=== PATIENT | male | born 1955 | race Caucasian/White ===

== ENCOUNTER 2021-08-25 09:52 | Inpatient (IN) | payer OTHER ==
[~2021-08-25] VITALS: Ht 182.9 cm; Wt 114.6 kg
[2021-08-25 10:34] LABS: BASOPHILS ABSOLUTE AUTO 0.11 K/mm3 (0.00-0.23); BASOPHILS PERCENT AUTO 1 % (0-2); EOSINOPHILS ABSOLUTE AUTO 0.24 K/mm3 (0.00-0.68); EOSINOPHILS PERCENT AUTO 2 % (0-6); Hematocrit 41.7 % (37.0-53.0); Hemoglobin 13.8 g/dL (13.5-17.5); IMMATURE GRAN ABSOLUTE AUTO 0.03 K/mm3 (0.00-0.10); IMMATURE GRAN PERCENT AUTO 0 % (0-1); LYMPHOCYTES ABSOLUTE AUTO 2.65 K/mm3 (0.84-5.20); LYMPHOCYTES PERCENT AUTO 22 % (21-46); MONOCYTES ABSOLUTE AUTO 0.75 K/mm3 (0.16-1.47); MONOCYTES PERCENT AUTO 6 % (4-13); Mean Corpuscular HGB 30.4 pg (26.0-34.0); Mean Corpuscular HGB Conc 33.1 g/dL (31.5-36.5); Mean Corpuscular Volume 92 fL (80-100); Mean Platelet Volume 9.5 fL (9.1-12.4); NEUTROPHILS PERCENT AUTO 69 % (41-73); Platelet Count 238 K/mm3 (150-400); RDW Coefficient Variation 14.7 % (11.7-14.2); RDW Standard Deviation 49.5 fL (35.1-46.3); Red Blood Cell Count 4.54 M/mm3 (4.30-5.90); White Blood Cell Count 12.18 K/mm3 (4.00-11.30)
[2021-08-25 10:56] LABS: Albumin, Blood 4.1 g/dL (3.4-5.0); Albumin/Globulin Ratio 1.1 (0.8-1.8); Bun/Creatinine Ratio 18.6 (12.0-20.0); Creatinine, Blood 1.02 mg/dL (0.60-1.20); Globulin, Blood 3.7 g/dL (2.2-4.0); Potassium, Blood 4.1 mmol/L (3.5-5.5); Total Protein, Blood 7.8 g/dL (6.4-8.2)
[2021-08-25] MEDS ORDERED: THERA-D2000 UNIT PO (12:12)
[2021-08-25] MEDS ORDERED: Carvedilol12.5 MG PO (12:12)
[2021-08-25] MEDS ORDERED: TOCO1000 PO (12:12)
[2021-08-25] MEDS ORDERED: ATORVASTATIN CA40 M1 PO (12:13)
[2021-08-25] MEDS ORDERED: CLOP75 PO (12:13)
[2021-08-25] MEDS ORDERED: AMLO5 PO (12:13)
[2021-08-25] MEDS ORDERED: FOLI1 PO (12:13)
[2021-08-25] MEDS ORDERED: MULTI-VITAMIN1 EAC2 PO (12:14)
[2021-08-25 17:53] LABS: Anti-Xa UFH, PHA Monitoring <0.10 IU/mL; International Normalized Ratio 1.02; Prothrombin Time Results 10.7 Sec (9.7-11.5)
[2021-08-26 01:03] LABS: BASOPHILS ABSOLUTE AUTO 0.08 K/mm3 (0.00-0.23); BASOPHILS PERCENT AUTO 1 % (0-2); EOSINOPHILS ABSOLUTE AUTO 0.17 K/mm3 (0.00-0.68); EOSINOPHILS PERCENT AUTO 1 % (0-6); Hemoglobin 13.5 g/dL (13.5-17.5); IMMATURE GRAN ABSOLUTE AUTO 0.05 K/mm3 (0.00-0.10); IMMATURE GRAN PERCENT AUTO 0 % (0-1); LYMPHOCYTES ABSOLUTE AUTO 3.13 K/mm3 (0.84-5.20); LYMPHOCYTES PERCENT AUTO 21 % (21-46); MONOCYTES ABSOLUTE AUTO 0.88 K/mm3 (0.16-1.47); MONOCYTES PERCENT AUTO 6 % (4-13); Mean Corpuscular HGB 30.3 pg (26.0-34.0); Mean Corpuscular HGB Conc 32.9 g/dL (31.5-36.5); Mean Corpuscular Volume 92 fL (80-100); Mean Platelet Volume 9.8 fL (9.1-12.4); NEUTROPHILS ABSOLUTE AUTO 10.31 K/mm3 (1.96-9.15); NEUTROPHILS PERCENT AUTO 71 % (41-73); Platelet Count 224 K/mm3 (150-400); RDW Coefficient Variation 14.6 % (11.7-14.2); RDW Standard Deviation 50.2 fL (35.1-46.3); Red Blood Cell Count 4.45 M/mm3 (4.30-5.90); White Blood Cell Count 14.62 K/mm3 (4.00-11.30)
[2021-08-26 01:22] LABS: Albumin, Blood 3.9 g/dL (3.4-5.0); Bilirubin, Total 1.4 mg/dL (0.1-1.0); Bun/Creatinine Ratio 16.6 (12.0-20.0); Calcium, Blood 9.5 mg/dL (8.5-10.1); Creatinine, Blood 0.96 mg/dL (0.60-1.20); Globulin, Blood 3.8 g/dL (2.2-4.0); Magnesium, Blood 2.2 mg/dL (1.6-2.4); Total Protein, Blood 7.7 g/dL (6.4-8.2)
--- NOTE | 2021-08-26 04:22 | NUR ---
CRITICAL LAB CALLED IN WITH A TROP OF 100,[phone], NO CHEST PAIN/ SOB, HOSPITALIST NOTIFIED NO NEW ORDERS GIVEN.
--- NOTE | 2021-08-26 05:26 | NUR ---
SHIFT SUMMARY SEE PREVIOUS NOT ABOUT TROPNIN LEVELS. PT IS RESTING IN BED AND DENIES CHEST PAIN OR SHORTNESS OF BREATH, HE IS VERY ANXIOUS ABOUT HIS TROPONIN LEVELS AND NET BEING WITH HIS , BUT DENIES A NEED FOR ANXIETY MEDICATIONS "HE'S NOT THAT KIND OF TJ.' DR INFORMED OF HIS LABS AND VITALS, NO FURTHER ORDERS. PT IS VISUALLY IMPAIRED AND NEED VERBAL PROMPTING DURING CARE TO HELP HIM FEEL COMFORTABLE. WILL BE HERE IN THE MORNING AND CARDIOLOGY IS CONSULTED. CALL LIGHT IS WITHIN REACH
--- NOTE | 2021-08-26 10:30 | NUR ---
ASSUMED CARE AT APPROXIMATELY 0930, PT ALERT AND ORIENTED. VS STABLE. 02 SATS >90% ON RA. HR NSR 70'S. PT DENIES ANY CP AT THIS TIME. PT IS ANXIOUS ABOUT ELEVATED TROPONINS AND POSSIBLE ANGIOGRAM. AT BEDSIDE. DR. PIRES IN TO DISCUSS PLAN. PT ORIENTED TO ROOM.
[2021-08-26 13:42] LABS: Anti-Xa UFH, PHA Monitoring 0.77 IU/mL
--- NOTE | 2021-08-26 16:26 | NUR ---
SHIFT SUMMARY PT REMAINS ALERT AND ORIENTED. VS STABLE. HR NSR 70'S. PT DENIES ANY CP ALL SHIFT. PT ABLE TO STAND AND TRANSFER TO BATHROOM WITH ONE ASSIST DUE TO VISION DEFICIT. HEP GTT INFUSING PER ORDERS. PT TO BE NPO AT MIDNIGHT FOR ANGIOGRAM IN THE AM. AT BEDSIDE. WILL CONTINUE TO MONITOR AND REPORT TO ONCOMING RN
--- NOTE | 2021-08-27 05:08 | NUR ---
SHIFT SUMMARY: PT HAS BENE A&OX4 DURING MY SHIFT. ANXIOUS AND FRUSTARTED EASILY. PT REPORTS FRUSTRATION WITH LACK OF VISION CAUSE DIFFICUTLY WITH NAVIGATION WHEN UP. PT ALLOWED ME TO GUIDE HIM WHEN GETTING UP TO THE BATHROOM AND MANAGING IV/TELE LINES. PT BECOMES TEARFUL, CONSOLATION PROVIDED. HR HAS REMAINED IN THE 50-60'S. DENIES ANY CHEST PAIN.
--- NOTE | 2021-08-27 05:12 | NUR ---
HEPRIN GTT CONTINUES TO INFUSE AT 15
[2021-08-27 10:03] LABS: SARS-Cov-2 (COVID-19) PCR, MMC NEGATIVE (NEGATIVE)
--- NOTE | 2021-08-27 10:35 | NUR ---
PT TO [facility] FOR ANGIOGRAM
--- NOTE | 2021-08-27 13:11 | NUR ---
PT RETURNS FROM [employer]. SEE PROCEDURE NOTES FOR DETAILS. PT ARRIVES WITH RT FEMORAL ACCESS SITE, BLEEDING CONTROLLED, SITE IS SOFT TO PALPATION, NO BRUISING NOTED AT THIS TIME. POST PROCEDURE VS MONITORING IN PLACE. PT LYING FLAT, V/U OF NEED TO STAY IN THIS POSITION.
--- NOTE | 2021-08-27 18:43 | NUR ---
SHIFT SUMMARY: APPROX 2 HOURS INTO POST ANGIO RECOVERY PT C/O PAIN TO SCROTUM. SITE WAS REASSESSED, FULLNESS TO RT GROIN AND ENLARGED SCROTUM NOTED WHICH WAS NEW COMPARED TO PREVIOUS CHECK. PRESSURE WAS APPLIED FOR 30 MINS. SHALE PLANER OPERATOR HELPER TO BEDSIDE. RECOVERY WAS RESTARTED. SITE REMAINS STABLE, FULLNESS TO RT GROIN AND ENLARGED SCROTUM CONTINUE BUT HAVE NOT INCREASED. VS STABLE. SHALE PLANER OPERATOR HELPER RETURNS TO BEDSIDE FOR RECHECK. PT MAINTAINING O2 SATS >93% ON RA. SR ON MONITOR. WILL CONTINUE TO MONITOR AND TREAT ACCORDINGLY UNTIL CHANGE OF SHIFT.
--- NOTE | 2021-08-27 19:32 | NUR ---
ASSUMED PT CARE FROM [facility] RN ON DAY SHIFT. PT IS A&OX4. ANXIOUS CONCERNING RECOVERY AFTER PROCEDURE. RIGHT GROIN SITE DRESSING INTACT, FIRMNESS NOTED IS UNCHANGED FROM PRIOUS ASSESSMENT. SCROTAL SWELLING OBSERVED UNCHANGED FROM ASSESSMENT ON DAYSHIFT BY [facility]. WILL CONTINUE TO MONITOR. BP SATBLE, SAVED IN CHART.
--- NOTE | 2021-08-27 21:09 | NUR ---
PT'S RIGHT GROIN SITE REMAINS UNCHANGED FROM PREVIOUS ASSESSMENT. NO INCREASED INDERATION NOTED. NO DRAINAGE NOTED. SCROTUM HAS NOT SWOLLEN FROM LAST ASSESSMENT.
--- NOTE | 2021-08-28 00:25 | NUR ---
RIGHT FEMORAL SITES REMAINS UNCHANGED. INDERATION MAPPED, NO INCREASE IN SIZE. NO BLEEDING NOTED. DRESSING C/D/I. SCORTUM NOT INCREASING IN SIZE.
--- NOTE | 2021-08-28 03:51 | NUR ---
PT SITTING AT BEDSIDE TO VOID CLEAR, YELLOW URINE IN URINAL. PT ABLE TO STAND AND TAKE SEVERAL STEPS UP TOWARDS THE HEAD OF THE BED. RETURNED TO LYING IN BED. FEMORAL SITE HAS NO DRAINAGE, INDERATION HAS IMPROVED, AREA AROUND FEMORAL SITE IS SOFT. SCROTUM CONTINUES TO BE SWOLLOW BEFORE NOTED. FRESH WAS PROVIDED AT PT REQUEST.
[2021-08-28] MEDS ORDERED: LISI20 PO (12:12)
[2021-08-28 12:15] LABS: BASOPHILS ABSOLUTE AUTO 0.06 K/mm3 (0.00-0.23); BASOPHILS PERCENT AUTO 1 % (0-2); EOSINOPHILS ABSOLUTE AUTO 0.14 K/mm3 (0.00-0.68); EOSINOPHILS PERCENT AUTO 1 % (0-6); Hematocrit 31.9 % (37.0-53.0); Hemoglobin 10.4 g/dL (13.5-17.5); IMMATURE GRAN ABSOLUTE AUTO 0.03 K/mm3 (0.00-0.10); IMMATURE GRAN PERCENT AUTO 0 % (0-1); LYMPHOCYTES ABSOLUTE AUTO 2.59 K/mm3 (0.84-5.20); LYMPHOCYTES PERCENT AUTO 20 % (21-46); MONOCYTES PERCENT AUTO 7 % (4-13); Mean Corpuscular HGB 30.5 pg (26.0-34.0); Mean Corpuscular HGB Conc 32.6 g/dL (31.5-36.5); Mean Corpuscular Volume 94 fL (80-100); Mean Platelet Volume 9.8 fL (9.1-12.4); NEUTROPHILS ABSOLUTE AUTO 9.16 K/mm3 (1.96-9.15); NEUTROPHILS PERCENT AUTO 71 % (41-73); Platelet Count 183 K/mm3 (150-400); RDW Standard Deviation 52.2 fL (35.1-46.3); Red Blood Cell Count 3.41 M/mm3 (4.30-5.90); White Blood Cell Count 12.88 K/mm3 (4.00-11.30)
[2021-08-28 12:37] LABS: Albumin, Blood 3.6 g/dL (3.4-5.0); Bilirubin, Total 1.4 mg/dL (0.1-1.0); Bun/Creatinine Ratio 13.6 (12.0-20.0); Calcium, Blood 9.1 mg/dL (8.5-10.1); Creatinine, Blood 1.25 mg/dL (0.60-1.20); Globulin, Blood 3.5 g/dL (2.2-4.0); Potassium, Blood 3.8 mmol/L (3.5-5.5); Total Protein, Blood 7.1 g/dL (6.4-8.2)
--- NOTE | 2021-08-28 16:45 | NUR ---
Discharge: and patient verbalize understanding of discharge instructions. Patient to home with via WC.
== END 2021-08-28 16:29 | disposition home or self-care (01) | DRG 281 ==
LOC: ER 09:52 → MEDS 09:53 → PCU 08-26 10:00
PROVIDERS: Internal Medicine; Internal Medicine Interventional Cardiology; Physician Assistant; ADMIT Internal Medicine
PROC: 4A023N7 Measurement of Cardiac Sampling and Pressure, Left Heart, Percutaneous Approach (ICD-10-PCS; principal; 2021-08-27)
PROC: B2111ZZ Fluoroscopy of Multiple Coronary Arteries using Low Osmolar Contrast (ICD-10-PCS; 2021-08-27)
PROC: B2131ZZ Fluoroscopy of Multiple Coronary Artery Bypass Grafts using Low Osmolar Contrast (ICD-10-PCS; 2021-08-27)
PROC: B2181ZZ Fluoroscopy of Left Internal Mammary Bypass Graft using Low Osmolar Contrast (ICD-10-PCS; 2021-08-27)
DX: I21.4 Non-ST elevation (NSTEMI) myocardial infarction (principal); I25.719 Atherosclerosis of autologous vein coronary artery bypass graft(s) with unspecified angina pectoris; L76.32 Postprocedural hematoma of skin and subcutaneous tissue following other procedure; Z20.822 Contact with and (suspected) exposure to COVID-19; I25.10 Atherosclerotic heart disease of native coronary artery without angina pectoris; N50.89 Other specified disorders of the male genital organs; E66.9 Obesity, unspecified; E78.5 Hyperlipidemia, unspecified; Z68.34 Body mass index [BMI] 34.0-34.9, adult; J44.9 Chronic obstructive pulmonary disease, unspecified; I50.9 Heart failure, unspecified; I11.0 Hypertensive heart disease with heart failure; Z95.1 Presence of aortocoronary bypass graft; Z86.73 Personal history of transient ischemic attack (TIA), and cerebral infarction without residual deficits; Z87.891 Personal history of nicotine dependence; Z79.02 Long term (current) use of antithrombotics/antiplatelets; Z79.899 Other long term (current) drug therapy
CPT/HCPCS: 36415; 71045; 76937; 80053; 82565; 83735; 83880; 84484; 85025; 85347; 85520; 85610; 85730; 92937; 93005; 93010; 93306; 93455; 96365; 96374; 99152; 99153; 99285-25; A9270; C1760; C1769; C1887; C1894; G0378; J1644; J1650; J2250; J2720; J3010; J7030; J7040; Q9967; U0004

== ENCOUNTER → 2021-09-27 | Outpatient (CLI) | payer MEDICARE ==
[~2021-09-27] MED LIST: AMLO5 PO; ATORVASTATIN CA40 M1 PO; CLOP75 PO; Carvedilol12.5 MG PO; FOLI1 PO; LISI20 PO; MULTI-VITAMIN1 EAC2 PO; THERA-D2000 UNIT PO; TOCO1000 PO
== END | disposition home or self-care (01) ==
LOC: LAB 10:46 → LAB SHORT 10:46
DX: T81.30XD Disruption of wound, unspecified, subsequent encounter (principal)
CPT/HCPCS: 87070; 87075; 87077; 87147; 87186; 87205

== ENCOUNTER 2022-08-01 06:04 | Emergency (ER) | payer OTHER ==
[~2022-08-01] VITALS: Ht 182.9 cm; Wt 129.3 kg
[2022-08-01 06:37] LABS: BASOPHILS ABSOLUTE AUTO 0.08 K/mm3 (0.00-0.23); BASOPHILS PERCENT AUTO 1 % (0-2); EOSINOPHILS ABSOLUTE AUTO 0.18 K/mm3 (0.00-0.68); EOSINOPHILS PERCENT AUTO 2 % (0-6); Hematocrit 40.8 % (37.0-53.0); Hemoglobin 13.7 g/dL (13.5-17.5); IMMATURE GRAN ABSOLUTE AUTO 0.02 K/mm3 (0.00-0.10); IMMATURE GRAN PERCENT AUTO 0 % (0-1); LYMPHOCYTES ABSOLUTE AUTO 2.54 K/mm3 (0.84-5.20); LYMPHOCYTES PERCENT AUTO 28 % (21-46); MONOCYTES ABSOLUTE AUTO 0.59 K/mm3 (0.16-1.47); MONOCYTES PERCENT AUTO 6 % (4-13); Mean Corpuscular HGB 31.6 pg (26.0-34.0); Mean Corpuscular HGB Conc 33.6 g/dL (31.5-36.5); Mean Corpuscular Volume 94 fL (80-100); Mean Platelet Volume 9.9 fL (9.1-12.4); NEUTROPHILS PERCENT AUTO 63 % (41-73); Platelet Count 196 K/mm3 (150-400); RDW Coefficient Variation 12.8 % (11.7-14.2); RDW Standard Deviation 44.6 fL (35.1-46.3); Red Blood Cell Count 4.33 M/mm3 (4.30-5.90); White Blood Cell Count 9.21 K/mm3 (4.00-11.30)
[2022-08-01 07:00] LABS: Albumin, Blood 3.9 g/dL (3.4-5.0); Albumin/Globulin Ratio 1.1 (0.8-1.8); Bilirubin, Total 1.7 mg/dL (0.1-1.0); Calcium, Blood 9.7 mg/dL (8.5-10.1); Creatinine, Blood 1.58 mg/dL (0.60-1.20); Globulin, Blood 3.4 g/dL (2.2-4.0); Magnesium, Blood 2.3 mg/dL (1.6-2.4); Potassium, Blood 4.5 mmol/L (3.5-5.5); Total Protein, Blood 7.3 g/dL (6.4-8.2)
[2022-08-01 09:30] VITALS: BP 112/86
== END 2022-08-01 10:25 | disposition home or self-care (01) ==
LOC: ER 06:04
PROVIDERS: Student in an Organized Health Care Education/Training Program
DX: R07.89 Other chest pain (principal); R77.8 Other specified abnormalities of plasma proteins; N18.9 Chronic kidney disease, unspecified; Z79.899 Other long term (current) drug therapy; I13.0 Hypertensive heart and chronic kidney disease with heart failure and stage 1 through stage 4 chronic kidney disease, or unspecified chronic kidney disease; I25.10 Atherosclerotic heart disease of native coronary artery without angina pectoris; I25.2 Old myocardial infarction; I50.9 Heart failure, unspecified
CPT/HCPCS: 71046; 80053; 83735; 84484; 85025; 93005; 93010; 99285-25

== ENCOUNTER 2023-01-30 07:25 | Emergency (ER) | payer OTHER ==
[~2023-01-30] VITALS: Ht 182.9 cm; Wt 129.3 kg
[2023-01-30 08:18] LABS: BASOPHILS PERCENT AUTO 1 % (0-2); EOSINOPHILS ABSOLUTE AUTO 0.22 K/mm3 (0.00-0.68); EOSINOPHILS PERCENT AUTO 2 % (0-6); Hematocrit 42.1 % (37.0-53.0); Hemoglobin 14.1 g/dL (13.5-17.5); IMMATURE GRAN ABSOLUTE AUTO 0.04 K/mm3 (0.00-0.10); IMMATURE GRAN PERCENT AUTO 0 % (0-1); LYMPHOCYTES ABSOLUTE AUTO 2.82 K/mm3 (0.84-5.20); LYMPHOCYTES PERCENT AUTO 25 % (21-46); MONOCYTES ABSOLUTE AUTO 0.67 K/mm3 (0.16-1.47); MONOCYTES PERCENT AUTO 6 % (4-13); Mean Corpuscular HGB Conc 33.5 g/dL (31.5-36.5); Mean Corpuscular Volume 96 fL (80-100); Mean Platelet Volume 10.1 fL (9.1-12.4); NEUTROPHILS ABSOLUTE AUTO 7.24 K/mm3 (1.96-9.15); NEUTROPHILS PERCENT AUTO 65 % (41-73); Platelet Count 207 K/mm3 (150-400); RDW Coefficient Variation 13.3 % (11.7-14.2); RDW Standard Deviation 47.8 fL (35.1-46.3); White Blood Cell Count 11.09 K/mm3 (4.00-11.30)
[2023-01-30 08:30] LABS: Albumin, Blood 3.7 g/dL (3.4-5.0); Bilirubin, Total 0.8 mg/dL (0.1-1.0); Bun/Creatinine Ratio 17.3 (12.0-20.0); Creatinine, Blood 1.56 mg/dL (0.60-1.20); Globulin, Blood 3.7 g/dL (2.2-4.0); Potassium, Blood 4.4 mmol/L (3.5-5.5); Total Protein, Blood 7.4 g/dL (6.4-8.2)
[2023-01-30 08:38] LABS: International Normalized Ratio 0.98; Prothrombin Time Results 10.3 Sec (9.7-11.5)
[2023-01-30 11:30] VITALS: BP 146/88
== END 2023-01-30 12:06 | disposition home or self-care (01) ==
LOC: ER 07:25
PROVIDERS: Student in an Organized Health Care Education/Training Program
DX: R07.89 Other chest pain (principal); Z79.899 Other long term (current) drug therapy; I13.0 Hypertensive heart and chronic kidney disease with heart failure and stage 1 through stage 4 chronic kidney disease, or unspecified chronic kidney disease; N18.9 Chronic kidney disease, unspecified; I25.10 Atherosclerotic heart disease of native coronary artery without angina pectoris; I25.2 Old myocardial infarction; I50.9 Heart failure, unspecified; J44.9 Chronic obstructive pulmonary disease, unspecified
CPT/HCPCS: 71046; 80053; 83690; 83880; 84484; 85025; 85610; 93005; 93010; 99285-25; J7030

== ENCOUNTER 2023-04-24 08:43 | Day surgery (SDC) | payer OTHER ==
[~2023-04-24] VITALS: Ht 182.9 cm; Wt 129.0 kg
[~2023-04-24 08:43] MED LIST changes: +Lactated Ringer's 1,000 ML IV SCH
[2023-04-24 09:23] VITALS: BP 142/94
[2023-04-24] MEDS ORDERED: propofoL 60 ML IV ONE (10:07)
--- NOTE | 2023-04-24 10:25 | NUR ---
04/24/23 1025 Lauren MurryHISTORY, CHART, MEDICATIONS AND ALLERGIES REVIEWED BEFORE START OF PROCEDURE. PATIENT CONFIRMS NPO STATUS AND AGREES WITH SCHEDULED PROCEDURE. 3-LEAD EKG REVIEWED WITH PHYSICIAN PRIOR TO START OF PROCEDURE. MONITOR INTACT WITH CONTINUOUS PULSE OXIMETRY,CAPNOGRAPHY, 3-LEAD EKG, INTERMITTENT BP. SUPPLEMENTAL O2 TO BE TITRATED THROUGHOUT PROCEDURE TO MAINTAIN O2 SATURATION ABOVE 90%. DR SALINAS PROVIDES ANESTHESIA SEE NOTES
[2023-04-24 10:55] VITALS: BP 93/60
[2023-04-24 11:00] VITALS: BP 112/71
[2023-04-24 11:15] VITALS: BP 124/83
--- NOTE | 2023-04-24 11:44 | NUR ---
Patient up to Ambulate independently. Gait steady. Discharge instructions reviewed with patient. Patient verbalizes understanding. Copy given to patient to take home. Discharged via wheelchair to private car for ride home.
== END 2023-04-24 22:43 | disposition home or self-care (01) ==
LOC: ORSCMMR 08:43 → ORD 10:15 → ORSCMMR 10:15
PROVIDERS: Internal Medicine Gastroenterology
PROC: 0DBN8ZX Excision of Sigmoid Colon, Via Natural or Artificial Opening Endoscopic, Diagnostic (ICD-10-PCS; principal; 2023-04-24 10:15)
PROC: 0DBM8ZX Excision of Descending Colon, Via Natural or Artificial Opening Endoscopic, Diagnostic (ICD-10-PCS; principal; 2023-04-24 10:15)
DX: Z12.11 Encounter for screening for malignant neoplasm of colon (principal); D12.4 Benign neoplasm of descending colon; D12.5 Benign neoplasm of sigmoid colon; K63.5 Polyp of colon; K57.30 Diverticulosis of large intestine without perforation or abscess without bleeding; J44.9 Chronic obstructive pulmonary disease, unspecified; I25.10 Atherosclerotic heart disease of native coronary artery without angina pectoris; I25.2 Old myocardial infarction; Z86.73 Personal history of transient ischemic attack (TIA), and cerebral infarction without residual deficits; E66.01 Morbid (severe) obesity due to excess calories; Z68.38 Body mass index [BMI] 38.0-38.9, adult; Z79.02 Long term (current) use of antithrombotics/antiplatelets; Z79.899 Other long term (current) drug therapy; Z87.891 Personal history of nicotine dependence
CPT/HCPCS: 88305; J2704; J7120